=== PATIENT | male | born 1990 | race American Indian/Alaskan Native ===

== ENCOUNTER → 2019-10-07 | Emergency (ER) | payer SELFPAY ==
--- NOTE | 2019-10-07 03:59 | Emergency Department Report ---
Chief Complaint: Urogenital-Male Stated Complaint: STD Time Seen by Provider: 10/07/19 03:53 - HPI History of Present Illness: Patient is a 28-year-old male that presents emergency room with complaints of dysuria and penile discharge x2 days. Patient states he wants to be tested for HIV. Patient denies penile pain. Patient denies rash. Patient denies lesions. Patient denies abdominal pain. Patient denies back pain. Patient denies fever and chills. Patient denies nausea vomiting. Patient denies pelvic pain. Patient denies abdominal pain. Patient denies cough. Patient denies shortness of breath. Patient denies fever and chills. Patient denies muscle pain. - ROS Review of Systems: Review of systems negative except for HPI. - Exam Vital Signs: Vital Signs 10/07/19 00:40 Temperature 98.4 F Pulse Rate 111 H Respiratory 18 Rate Blood Pressure 130/74 O2 Sat by Pulse 99 Oximetry Physical Exam: The patient appeared well nourished and normally developed. Vital signs as documented. Head exam is unremarkable. No scleral icterus or corneal arcus noted. Neck is supple lungs are clear to auscultation and percussion. Cardiac exam reveals First and second heart sounds normal. No murmurs, rubs or gallops. Abdominal exam reveals normal bowel sounds, no masses, no organomegaly and no aortic enlargement. MSE screening note: Focused history and physical exam performed. Due to findings the following was ordered: Patient referred to outpatient treatment since the patient does not have an emergency medical condition. ED Medical Decision Making - Medical Decision Making Patient is a 28-year-old male that presents emergency room with complaints of dysuria and penile discharge. Patient has no other complaints. Patient wants to be screened for STDs. I discussed emergency medical condition with the patient. Patient does not have an emergency medical condition. Patient was referred to our registration department for a urgent care visit and the patient did not want to proceed. Patient left after MSE done. - Differential Diagnosis STD, dysuria ED Disposition for MSE Clinical Impression: Dysuria, Penile discharge Disposition: MED SCREENING EXAM-LEFT Is pt being admited?: No Does the pt Need Aspirin: No Condition: Stable Instructions: Dysuria (ED), Safe Sex (ED), Sexually Transmitted Diseases (ED) Additional Instructions: Patient to follow-up with primary care in 2 to 3 days. Patient to follow-up with health department in 2 to 3 days. Patient to rest. Patient to increase water. Patient to avoid sex until cleared by primary care or health department.. Patient to take Tylenol or ibuprofen as needed for pain. Patient to return to the ER if condition worsens, changes or new symptoms arise. Referrals: PRIMARY CARE, [Primary Care Provider] - 2-3 Days [facility] [Outside] - 2-3 Days Time of Disposition: 03:59
== END | disposition left against medical advice (07) ==
LOC: ED 00:10
DX: R30.0 Dysuria (principal); R36.9 Urethral discharge, unspecified
CPT/HCPCS: 99281